=== PATIENT | male | born 2005 | race Caucasian/White ===

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

== ENCOUNTER 2025-01-10 19:12 | Emergency (ER) | payer OTHER ==
[~2025-01-10] VITALS: Ht 180.3 cm; Wt 59.0 kg
[2025-01-10 19:46] VITALS: BP 130/65
== END 2025-01-10 21:29 | disposition home or self-care (01) ==
LOC: ER 19:12
DX: M54.50 Low back pain, unspecified (principal)
CPT/HCPCS: 72100; 99284-25